=== PATIENT | male | born 1985 | race Caucasian/White ===

== ENCOUNTER 2019-08-30 01:12 | Emergency (ER) | payer BC ==
--- NOTE | 2019-08-30 06:04 | EDM.PDOC ---
ED HPI GENERAL MEDICAL PROBLEM - General Chief Complaint: Back Pain or Injury Stated Complaint: BACK PAIN (FELL ON ICE) Time Seen by Provider: 08/30/19 02:47 - History of Present Illness INITIAL COMMENTS - FREE TEXT/NARRATIVE: Patient presented to ER for slip and fall. Night prior he slipped back hit the back of his head and upper torso. Denied LOC. At the time of the injury he walked back to his shower then went to bed felt the muscles in his back stiffening up. He denies any vomiting the headache was not severe. Denied any weakness or numbness or any vision changes. Was able to walk denied any other associated symptoms. bilateral shoulder blades and lateral upper back bilat Pain Score (Numeric/FACES): 9 - Related Data Allergies Allergy/AdvReac Type Severity Reaction Status Date / Time No Known Allergies Allergy Verified 08/30/19 03:02 Home Meds: Home Meds . 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 ED EXAM, HEAD INJURY - Physical Exam Exam: See Below Text/Narrative:: mild paraspinal c spine tenderness Exam Limited By: No Limitations General Appearance: Alert, WD/WN, No Apparent Distress Head: Atraumatic, Normocephalic Nexus Criteria: No: Posterior, Midline Cervical Tenderness, Evidence of Intoxication, Altered Level of Consciousness, Focal Neurological Deficit, Painful Distraction Injuries Eyes: Bilateral Eye: EOMI, PERRL Ears: Normal External Exam Nose: Normal Inspection Throat/Mouth: Normal Inspection Neck: Full Range of Motion Respiratory: No Respiratory Distress, Lungs Clear, Normal Breath Sounds. 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 No: Abnormal Gait, Sensory Deficit Course - Vital Signs Last Recorded V/S: Last Vital Signs Temp 98.0 F 08/30/19 02:11 Pulse 120 H 08/30/19 02:11 Resp 18 08/30/19 02:11 BP 116/83 08/30/19 02:11 Pulse Ox 96 08/30/19 02:11 - Re-Assessments/Exams Free Text/Narrative Re-Assessment/Exam: 08/30/19 06:05 plan was to do pain control,. head ct, cervical imaging, and cxr to assess thoracic spine. PAtient eloped prior to completion of the work up. appeared to have capacity at the time. Departure - Departure Time of Disposition: 06:07 Disposition: DC/Tfer to SNF 03 Clinical Impression: Contusion, Fall - Discharge Information Referrals: PCP,Not In Area [Primary Care Provider] - Forms: ED Department Discharge Sepsis Event Note - Evaluation Sepsis Screening Result: No Definite Risk - Focused Exam Vital Signs: Vital Signs Temp Pulse Resp BP Pulse Ox 08/30/19 02:11 98.0 F 120 H 18 116/83 96 Date Exam was Performed: 08/30/19 Time Exam was Performed: 05:59
== END 2019-08-30 03:30 ==
LOC: MW.ED 01:12
DX: S20.222A Contusion of left back wall of thorax, initial encounter (principal); S20.221A Contusion of right back wall of thorax, initial encounter; R40.1 Stupor; F17.210 Nicotine dependence, cigarettes, uncomplicated; W01.10XA Fall on same level from slipping, tripping and stumbling with subsequent striking against unspecified object, initial encounter
CPT/HCPCS: 99283